=== PATIENT | female | born 1955 | race African-American/Black ===

== ENCOUNTER 2023-07-07 09:44 | Inpatient (IN) | payer OTHER ==
[~2023-07-07] VITALS: Ht 152.4 cm; Wt 90.7 kg
--- NOTE | 2023-07-07 11:07 | NUR ---
PTE FEMINA DE [facility] [place], SIN SIGNOS VITALES, SE MARK A UNIDAD DE CRITICO, [place]IJ[place] REFIERE PTE ESTABA DESAYUNANDO Y COMENZO A SENTIRSE AHOGADA SE PUSO MEDICAMENTO DE ALBUTEROL EN FORMA DE TINO Y LA PTE COMENZO A TENER DIFICULTAD RESPIRATORIA. 0947 SE COMIENZA CPR 0949 SE CANALIZA A PTE EN MANO DERECHA ANGIO #20 [address] [place] Y ERITEMA. 0950 PTE ES ENTUBADA CON EXITO POR CON TUBO #7. [address] LA PRIMERA FATIMAH DE EPINEFRINA, JEAN CLAUDE ORDEN MEDICA DE . [address] LA SEGUNDA FATIMAH DE EPINEFRINA, JEAN CLAUDE ORDEN MEDICA DE . [address] BICARBONATO DE SODIO, JEAN CLAUDE ORDEN MEDICA DE . [id number] [id number] TERCERA FATIMAH DE EPINEFRINA, JEAN CLAUDE ORDEN MEDICA DE . 1001 P-93 LAT/MIN 1003 B/P- 84/47 1004 INDICA ADMINISTRAR ATROPINA, LA MISMA ES ADMINISTRADA.
[2023-07-07 13:15] LABS: ABG PH 7.309 (7.35-7.45); ABG PO2 115.5 mmHg (80-100); ABG pCO2 47.4 mmHg (35-45); BASE EXCESS -3.3 mmol/l; BICARBONATE 23.3 mmol/l (23-25); SaO2 97.9 %; Tco2 24.7 mmol/l; o2 100 %; puncture site RADIAL LEFT
[2023-07-07 13:16] LABS: allen test SATISFACTORY
[2023-07-07 13:26] LABS: HEMATOCRIT 35.7 % (36.0-45.00); HEMOGLOBIN 12.1 g/dL (12.0-15.00); MEAN CELL VOLUME 89.4 fL (80.00-100.00); MEAN CORPUSCULAR HEMOGLOBIN 30.4 pg (27.00-32.0); RED BLOOD COUNT 3.99 M/uL (4.00-6.00); RED CELL DISTRIBUTION WIDTH 14.5 % (11.5-14.5)
[2023-07-07] MEDS ORDERED: FAMOTIDINE/PF 20 MG/2 ML VIAL IV PUSH ONE (13:30)
[2023-07-07] MEDS ORDERED: DEXAMETHASONE SODIUM PHOSPHATE 4 MG/ML VIAL IV ONE (13:30)
[2023-07-07 13:55] LABS: PLATELET COUNT 108 K/uL (150-450)
[2023-07-07 13:58] LABS: ALBUMIN 3.3 gm/dL (3.4-5.0); BILIRUBIN TOTAL 0.62 mg/dL (0.3-1.2); CALCIUM 8.5 mg/dL (8.5-10.1); CREATININE SERUM 1.2 mg/dL (0.55-1.02); GFR 44.41; GLOBULINA 3.5 G/DL (2.4-3.5); POTASSIUM 4.21 mEq/L (3.5-5.1); TOTAL PROTEIN 6.8 gm/dL (6.4-8.2)
[2023-07-07 15:25] LABS: PH,URINE 6.5 (5.0-8.0); URINE APPEARANCE Clear; URINE BILIRRUBIN Negative (NEGATIVE); URINE COLOR Yellow; URINE LEUKOCYTE Negative; URINE NITRATE Negative
[2023-07-07 15:28] LABS: URINE BACTERIA 658.8 uL (0.0-1933); URINE EPITHELIAL CELLS 20.4 uL (0.0-38.8); URINE RBC 14.2 uL (0.0-20.8)
[2023-07-07] MEDS ORDERED: NOREPINEPHRINE BITARTRATE 8 MG in DEXTROSE 5 % IN WATER 250 ML IV SCH (15:30)
[2023-07-07] MEDS ORDERED: EPINEPHRINE HCL/PF 1 MG/ML AMPUL IV PUSH STA (15:30)
[2023-07-07] MEDS ORDERED: SODIUM BICARBONATE 1 MEQ/ML DISP.SYRIN 50ML IV STA (15:31)
[2023-07-07] MEDS ORDERED: 0.9 % SODIUM CHLORIDE 1,000 ML IV STA (15:35)
[2023-07-07 15:42] LABS: URINE GLUCOSE 250 MG/DL (NEGATIVE); URINE PROTEIN 100 (NEGATIVE)
[2023-07-07 15:43] LABS: URINE BLOOD Trace; URINE MUCUS SCANT
[2023-07-07 15:45] LABS: URINE CRYSTALS MODERATE /HPF
[2023-07-07] MEDS ORDERED: ENALAPRILAT DIHYDRATE 2.5 MG/2 ML VIAL IV STA (15:53)
--- NOTE | 2023-07-07 15:58 | NUR ---
SE RECIBE PTE STUPUROSA EN CAMA #3, PTE EN KHALIDA CON BARANDAS ELEVADAS CONECTADA A MONITOR CARDIACO CON OXIMETRIA CONTINUA. PTE CON TUBO ENDOTRAQUEAL COLOCADO Y CONECTADO A MVENTILADOR MACANICO CON LOS SIGUIENTES PARAMETROS: VT 400, O2 100%, PEEP 6, PF LT 55, RATE 18. PTE CON TUBO NGT COLOCADO EN FOSSA LT. SE OBSERVAN H/L X2 COLOCADOS LIBRES DE EDEMA, 0.9NSS BAJANDO A 100ML/HR. PTE CON MARCELO COLOCADO BAJANDO A GRAVEDAD. SE MIDEN S/V A PTE Y SE DOCUMENTAN. SE NOTIFICA RX Y CT PENDIENTES A REALIZAR. PTE CON DNR+DNI+NO DIALYSIS FIRMADO POR FAMILIAR. PTE SE CONTINUA MONITORIANDO POR CAMBIOS.
[2023-07-07] MEDS ORDERED: PROPOFOL 100 ML IV SCH (16:45)
[2023-07-07] MEDS ORDERED: PANTOPRAZOLE SODIUM 40 MG/VIAL VIAL IV SCH (16:52)
[2023-07-07] MEDS ORDERED: FUROsemide 20 MG/2 ML VIAL IV ONE (17:00)
[2023-07-07] MEDS ORDERED: FUROsemide 20 MG/2 ML VIAL IV SCH (17:00)
[2023-07-07] MEDS ORDERED: NITROGLYCERIN IN 5 % DEXTROSE 250 ML IV SCH (17:00)
[2023-07-07] MEDS ORDERED: ONDANSETRON HCL 4 MG in 0.9 % SODIUM CHLORIDE 50 ML IV PRN (17:00)
[2023-07-07] MEDS ORDERED: MEROPENEM 500 MG/VIAL VIAL IV SCH (17:25)
[2023-07-07] MEDS ORDERED: VANCOMYCIN HCL 1,000 MG VIAL IV SCH (17:26)
[2023-07-07] MEDS ORDERED: ACETAMINOPHEN 500 MG GEL..CAP PO PRN (17:30)
[2023-07-07] MEDS ORDERED: ENOXAPARIN SODIUM 40 MG/0.4 ML SYRINGE SUBCUTANEO SCH (17:31)
[2023-07-07] MEDS ORDERED: 0.9 % SODIUM CHLORIDE 1,000 ML IV SCH (17:45)
[2023-07-07 18:25] LABS: ABG PO2 50.5 mmHg (80-100); ABG pCO2 38.5 mmHg (35-45); BASE EXCESS -2.4 mmol/l; BICARBONATE 22.3 mmol/l (23-25); SaO2 84.4 %; Tco2 23.5 mmol/l; allen test SATISFACTORY; o2 100 %; puncture site RADIAL LEFT
[2023-07-07 19:37] LABS: ALBUMIN 3.1 gm/dL (3.4-5.0); BILIRUBIN TOTAL 0.68 mg/dL (0.3-1.2); TOTAL PROTEIN 7.1 gm/dL (6.4-8.2)
[2023-07-07 19:38] LABS: INR 1.04; PARTIAL THROMBOPLASTIN TIME 24.8 SECONDS (22.0-34.0); PROTHROMBIN TIME 10.9 SECONDS (9.0-11.5)
[2023-07-07 19:39] LABS: D DIMER 6.08 MG/L
[2023-07-07 19:40] LABS: C-REACTIVE PROTEIN 5.13 MG/DL (0.00-0.29)
[2023-07-07 19:41] LABS: FERRITIN 1642.7 NG/ML (8-252)
[2023-07-07 19:50] LABS: BILIRUBIN,CONJUGATED 0.21 mg/dL (0.0-0.2); BILIRUBIN,UNCONJUGATED 0.47 mg/dL (0.0-0.6)
[2023-07-08 08:36] LABS: ABG PO2 325.4 mmHg (80-100); ABG pCO2 31.7 mmHg (35-45); BASE EXCESS 0.5 mmol/l; BICARBONATE 23.1 mmol/l (23-25); SaO2 99.9 %; Tco2 24.1 mmol/l
[2023-07-08 08:37] LABS: allen test SATISFACTORY; o2 100 %; puncture site RADIAL RIGHT
[2023-07-08] MEDS ORDERED: DEXAMETHASONE SODIUM PHOSPHATE 4 MG/ML VIAL IV SCH (09:00)
[2023-07-08] MEDS ORDERED: POLYVINYL ALCOHOL 15 ML DROPS OP SCH (14:39)
[2023-07-08 15:16] LABS: HEMATOCRIT 33.9 % (36.0-45.00); HEMOGLOBIN 11.6 g/dL (12.0-15.00); MEAN CELL VOLUME 89.1 fL (80.00-100.00); MEAN CORPUSCULAR HEMOGLOBIN 30.4 pg (27.00-32.0); MEAN CORPUSCULAR HGB CONC 34.1 g/dl (32.0-36.0); RED BLOOD COUNT 3.81 M/uL (4.00-6.00); RED CELL DISTRIBUTION WIDTH 14.8 % (11.5-14.5)
[2023-07-08 15:26] LABS: PLATELET COUNT 94 K/uL (150-450)
[2023-07-08] MEDS ORDERED: PROPOFOL 100 ML IV SCH (15:30)
[2023-07-08 15:38] LABS: ALBUMIN 2.5 gm/dL (3.4-5.0); BILIRUBIN TOTAL 0.63 mg/dL (0.3-1.2); CALCIUM 8.3 mg/dL (8.5-10.1); CREATININE SERUM 1.35 mg/dL (0.55-1.02); GFR 38.77; GLOBULINA 3.8 G/DL (2.4-3.5); MAGNESIUM 1.9 mg/dL (1.8-2.4); PHOSPHOROUS 3.3 mg/dL (2.5-4.9); POTASSIUM 3.72 mEq/L (3.5-5.1); TOTAL PROTEIN 6.3 gm/dL (6.4-8.2)
[2023-07-08] MEDS ORDERED: AMIODARONE HCL200 MG (15:41)
[2023-07-08] MEDS ORDERED: FARXIGA10 MG (15:41)
[2023-07-08] MEDS ORDERED: ADVAIR HFA 115/12 GM (15:41)
[2023-07-08] MEDS ORDERED: ELIQUIS2.5 MG (15:41)
[2023-07-08] MEDS ORDERED: DIGOXIN125 MCG (15:42)
[2023-07-08] MEDS ORDERED: FLONASE16 GM (15:42)
[2023-07-08] MEDS ORDERED: LORATADINE10 MG (15:42)
[2023-07-08] MEDS ORDERED: GABAPENTIN300 M2 (15:42)
[2023-07-08] MEDS ORDERED: LISINOPRIL10 MG (15:42)
[2023-07-08] MEDS ORDERED: METHOTREXATE2.5 MG (15:42)
[2023-07-08] MEDS ORDERED: CARVEDILOL25 M1 (15:42)
[2023-07-08] MEDS ORDERED: ALLOPURINOL100 MG (15:42)
[2023-07-08] MEDS ORDERED: FUROSEMIDE20 MG (15:42)
[2023-07-08] MEDS ORDERED: CHLORHEXIDINE GLUCONATE 15ML BRUSH KIT MM SCH (17:00)
[2023-07-09 04:00] LABS: HEMATOCRIT 32.7 % (36.0-45.00); HEMOGLOBIN 11.2 g/dL (12.0-15.00); MEAN CELL VOLUME 88.3 fL (80.00-100.00); MEAN CORPUSCULAR HEMOGLOBIN 30.3 pg (27.00-32.0); MEAN CORPUSCULAR HGB CONC 34.3 g/dl (32.0-36.0); RED CELL DISTRIBUTION WIDTH 14.7 % (11.5-14.5)
[2023-07-09 04:03] LABS: PLATELET COUNT 101 K/uL (150-450)
[2023-07-09 04:45] LABS: FERRITIN 685.3 NG/ML (8-252)
[2023-07-09 04:46] LABS: ALBUMIN 2.5 gm/dL (3.4-5.0); BILIRUBIN TOTAL 0.67 mg/dL (0.3-1.2); CALCIUM 8.5 mg/dL (8.5-10.1); CREATININE SERUM 1.16 mg/dL (0.55-1.02); GFR 46.18; MAGNESIUM 1.9 mg/dL (1.8-2.4); PHOSPHOROUS 2.6 mg/dL (2.5-4.9); POTASSIUM 3.6 mEq/L (3.5-5.1); TOTAL PROTEIN 6.5 gm/dL (6.4-8.2)
[2023-07-09 04:47] LABS: C-REACTIVE PROTEIN 31.8 MG/DL (0.00-0.29)
[2023-07-09] MEDS ORDERED: CEFTRIAXONE SODIUM 2,000 MG VIAL IV SCH (12:20)
[2023-07-09 14:53] LABS: ABG PH 7.486 (7.35-7.45); ABG PO2 80.9 mmHg (80-100); ABG pCO2 35.2 mmHg (35-45); BASE EXCESS 2.9 mmol/l; BICARBONATE 25.9 mmol/l (23-25); SaO2 96.9 %
[2023-07-09 14:54] LABS: allen test SATISFACTORY; o2 40 %; puncture site RADIAL RIGHT
[2023-07-09] MEDS ORDERED: NITROGLYCERIN IN 5 % DEXTROSE 50 MG/250 ML BOTTLE IV SCH (23:00)
[2023-07-10] MEDS ORDERED: NITROGLYCERIN IN 5 % DEXTROSE 250 ML IV SCH (08:45)
[2023-07-10] MEDS ORDERED: LISINOPRIL 10 MG TABLET PO SCH (09:00)
[2023-07-10] MEDS ORDERED: ALLOPURINOL 100 MG TABLET PO SCH (09:00)
[2023-07-10] MEDS ORDERED: GABAPENTIN 300 MG CAPSULE PO SCH (09:00)
[2023-07-10] MEDS ORDERED: CHLORHEXIDINE GLUCONATE 120 ML BOTTLE TOP ONE (10:06)
[2023-07-10 10:30] LABS: ABG PH 7.503 (7.35-7.45); ABG PO2 106.7 mmHg (80-100); ABG pCO2 37.5 mmHg (35-45); BASE EXCESS 5.5 mmol/l; BICARBONATE 28.7 mmol/l (23-25); Tco2 29.9 mmol/l
[2023-07-10 10:31] LABS: allen test SATISFACTORY; o2 40 %; puncture site RADIAL LEFT
[2023-07-10 10:32] LABS: SaO2 98.7 %
[2023-07-10] MEDS ORDERED: hydrALAZINE HCL 25 MG TABLET PO STA (14:34)
[2023-07-10] MEDS ORDERED: DILTIAZEM HCL 125MG/25ML VIAL IV ONE (18:11)
[2023-07-10] MEDS ORDERED: DILTIAZEM HCL IV SCH (18:15)
[2023-07-10] MEDS ORDERED: SODIUM CHLORIDE 0.9% IV SCH (18:15)
[2023-07-10] MEDS ORDERED: hydrALAZINE HCL 25 MG TABLET PO SCH (21:00)
[2023-07-11 05:57] LABS: ABG PH 7.477 (7.35-7.45)
[2023-07-11 05:58] LABS: ABG PO2 96.7 mmHg (80-100); ABG pCO2 37.8 mmHg (35-45); BASE EXCESS 3.8 mmol/l; BICARBONATE 27.4 mmol/l (23-25); SaO2 98.1 %; Tco2 28.5 mmol/l; allen test SATISFACTORY; o2 40 %; puncture site RADIAL RIGHT
[2023-07-11] MEDS ORDERED: MEROPENEM 500 MG/VIAL VIAL IV SCH (09:00)
[2023-07-11 09:06] LABS: FERRITIN 969.9 NG/ML (8-252)
[2023-07-11] MEDS ORDERED: DILTIAZEM HCL 125 MG in 0.9 % SODIUM CHLORIDE 100 ML IV SCH (09:30)
[2023-07-11] MEDS ORDERED: LevETIRAcetam 500 MG/5 ML VIAL IV STA (21:59)
[2023-07-11] MEDS ORDERED: LORazepam 2 MG/ML VIAL IV PUSH STA (22:00)
[2023-07-12] MEDS ORDERED: LevETIRAcetam 500 MG/5 ML VIAL IV SCH (09:00)
[2023-07-12 09:04] LABS: ABG PH 7.491 (7.35-7.45)
[2023-07-12 09:05] LABS: ABG PO2 84.6 mmHg (80-100); ABG pCO2 37.7 mmHg (35-45); BASE EXCESS 4.7 mmol/l; BICARBONATE 28.1 mmol/l (23-25); SaO2 97.3 %; Tco2 29.3 mmol/l
[2023-07-12 09:06] LABS: allen test SATISFACTORY; o2 21 %; puncture site RADIAL RIGHT
[2023-07-12] MEDS ORDERED: VANCOMYCIN HCL 1,000 MG VIAL IV SCH (21:00)
[2023-07-12] MEDS ORDERED: CIPROFLOXACIN IN 5 % DEXTROSE 400 MG/200 ML PIGGYBAG IV SCH (21:00)
[2023-07-13 06:14] LABS: HEMATOCRIT 32.8 % (36.0-45.00); HEMOGLOBIN 11.1 g/dL (12.0-15.00); MEAN CELL VOLUME 90.2 fL (80.00-100.00); MEAN CORPUSCULAR HEMOGLOBIN 30.4 pg (27.00-32.0); MEAN CORPUSCULAR HGB CONC 33.7 g/dl (32.0-36.0); RED BLOOD COUNT 3.63 M/uL (4.00-6.00); RED CELL DISTRIBUTION WIDTH 14.9 % (11.5-14.5)
[2023-07-13 07:09] LABS: ALBUMIN 2.5 gm/dL (3.4-5.0); BILIRUBIN TOTAL 0.6 mg/dL (0.3-1.2); CALCIUM 8.8 mg/dL (8.5-10.1); CREATININE SERUM 0.87 mg/dL (0.55-1.02); GFR 64.37; GLOBULINA 4.1 G/DL (2.4-3.5); MAGNESIUM 2.4 mg/dL (1.8-2.4); PHOSPHOROUS 3.6 mg/dL (2.5-4.9); POTASSIUM 3.48 mEq/L (3.5-5.1); TOTAL PROTEIN 6.6 gm/dL (6.4-8.2)
[2023-07-13 07:13] LABS: C-REACTIVE PROTEIN 8.68 MG/DL (0.00-0.29)
[2023-07-13 07:34] LABS: FERRITIN 755.6 NG/ML (8-252)
[2023-07-13 08:48] LABS: PLATELET COUNT 164 K/uL (150-450)
[2023-07-13 08:56] LABS: ABG PH 7.509 (7.35-7.45); ABG PO2 94.1 mmHg (80-100); ABG pCO2 37.9 mmHg (35-45); BASE EXCESS 6.2 mmol/l; BICARBONATE 29.5 mmol/l (23-25); SaO2 98.2 %; Tco2 30.7 mmol/l; allen test SATISFACTORY; o2 45 %; puncture site RADIAL RIGHT
[2023-07-13] MEDS ORDERED: hydrALAZINE HCL 50 MG TABLET PO SCH (13:00)
[2023-07-13] MEDS ORDERED: POTASSIUM BICARBONATE/CIT AC 25 MEQ TABLET.EFF PO SCH (14:00)
[2023-07-14 07:59] LABS: ABG PH 7.501 (7.35-7.45); ABG PO2 107.5 mmHg (80-100); ABG pCO2 40.6 mmHg (35-45); BASE EXCESS 7.3 mmol/l; BICARBONATE 31.1 mmol/l (23-25); SaO2 98.7 %
[2023-07-14 08:00] LABS: Tco2 32.3 mmol/l; allen test SATISFACTORY; o2 40 %; puncture site RADIAL RIGHT
[2023-07-14] MEDS ORDERED: LORazepam 2 MG/ML VIAL IV PUSH PRN (14:45)
[2023-07-14] MEDS ORDERED: LevETIRAcetam 5 MG/1 ML REDILUIDO IV SCH (17:00)
[2023-07-14] MEDS ORDERED: MORPHINE SULFATE 4 MG/ML VIAL IV SCH (17:30)
[2023-07-14] MEDS ORDERED: MORPHINE SULFATE 50 MG in 0.9 % SODIUM CHLORIDE 50 ML IV SCH (18:00)
[2023-07-15] MEDS ORDERED: LEVALBUTEROL HCL 0.63 MG/3 ML SOLUTION IH SCH ×2 (08:08→08:10)
[2023-07-16] MEDS ORDERED: POTASSIUM CHLORIDE 20MEQ/100ML H2O PB IV ONE (10:30)
[2023-07-16] MEDS ORDERED: CHLORHEXIDINE GLUCONATE 15ML BRUSH KIT MM SCH (21:28)
[2023-07-16] MEDS ORDERED: POLYVINYL ALCOHOL 15 ML DROPS OP SCH (21:29)
[2023-07-19 12:18] LABS: HEMATOCRIT 32.4 % (36.0-45.00); HEMOGLOBIN 10.3 g/dL (12.0-15.00); MEAN CELL VOLUME 91.9 fL (80.00-100.00); MEAN CORPUSCULAR HEMOGLOBIN 29.2 pg (27.00-32.0); MEAN CORPUSCULAR HGB CONC 31.8 g/dl (32.0-36.0); PLATELET COUNT 416 K/uL (150-450); RED BLOOD COUNT 3.53 M/uL (4.00-6.00); RED CELL DISTRIBUTION WIDTH 15.4 % (11.5-14.5)
[2023-07-19 12:22] LABS: ALBUMIN 2.1 gm/dL (3.4-5.0); BILIRUBIN TOTAL 0.38 mg/dL (0.3-1.2); CALCIUM 9.3 mg/dL (8.5-10.1); CREATININE SERUM 1.56 mg/dL (0.55-1.02); GFR 32.81; GLOBULINA 5.1 G/DL (2.4-3.5); POTASSIUM 4.14 mEq/L (3.5-5.1); TOTAL PROTEIN 7.2 gm/dL (6.4-8.2)
[2023-07-20 07:30] LABS: ABG PH 7.438 (7.35-7.45); ABG PO2 67.1 mmHg (80-100); ABG pCO2 46.8 mmHg (35-45); BASE EXCESS 5.7 mmol/l; BICARBONATE 30.9 mmol/l (23-25); SaO2 94.1 %; Tco2 32.4 mmol/l; allen test SATISFACTORY; o2 21 %; puncture site RADIAL RIGHT
[2023-07-20] MEDS ORDERED: DEXTROSE 5 % IN WATER 1,000 ML IV SCH (12:45)
[2023-07-20] MEDS ORDERED: ACETAMINOPHEN 325 MG SUPP.RECT RECTAL PRN (16:15)
[2023-07-20] MEDS ORDERED: CIPROFLOXACIN IN 5 % DEXTROSE 400 MG/200 ML PIGGYBAG IV SCH (21:00)
[2023-07-21 05:19] LABS: ABG PH 7.475 (7.35-7.45)
[2023-07-21 05:20] LABS: ABG PO2 59.5 mmHg (80-100); ABG pCO2 39.2 mmHg (35-45); BASE EXCESS 4.4 mmol/l; BICARBONATE 28.2 mmol/l (23-25); SaO2 92.6 %; Tco2 29.4 mmol/l
[2023-07-21 05:21] LABS: allen test SATISFACTORY; o2 36 %; puncture site RADIAL RIGHT
[2023-07-21] MEDS ORDERED: MEROPENEM 500 MG/VIAL VIAL IV SCH (13:00)
[2023-07-21] MEDS ORDERED: VANCOMYCIN HCL 5 MG/ML REDILUIDO IV SCH (18:00)
[2023-07-22 08:17] LABS: HEMATOCRIT 32.9 % (36.0-45.00); HEMOGLOBIN 10.5 g/dL (12.0-15.00); MEAN CELL VOLUME 93.2 fL (80.00-100.00); MEAN CORPUSCULAR HEMOGLOBIN 29.8 pg (27.00-32.0); PLATELET COUNT 316 K/uL (150-450); RED BLOOD COUNT 3.53 M/uL (4.00-6.00); RED CELL DISTRIBUTION WIDTH 15.3 % (11.5-14.5)
[2023-07-22 08:22] LABS: CALCIUM 9.1 mg/dL (8.5-10.1); POTASSIUM 4.28 mEq/L (3.5-5.1)
[2023-07-22 09:20] LABS: CREATININE SERUM 5.75 mg/dL (0.55-1.02)
[2023-07-22 09:21] LABS: GFR 7.28
[2023-07-22] MEDS ORDERED: SODIUM CHLORIDE 0.45 % 1,000 ML IV SCH (09:30)
[2023-07-23 10:59] LABS: BILIRUBIN TOTAL 0.38 mg/dL (0.3-1.2); CALCIUM 9.2 mg/dL (8.5-10.1); GLOBULINA 4.8 G/DL (2.4-3.5); POTASSIUM 4.24 mEq/L (3.5-5.1); TOTAL PROTEIN 6.8 gm/dL (6.4-8.2)
[2023-07-23 11:55] LABS: GFR 10.07
[2023-07-23 11:56] LABS: CREATININE SERUM 4.34 mg/dL (0.55-1.02)
[2023-07-24 08:24] LABS: BILIRUBIN TOTAL 0.33 mg/dL (0.3-1.2); CALCIUM 9.1 mg/dL (8.5-10.1); CREATININE SERUM 2.81 mg/dL (0.55-1.02); GFR 16.64; GLOBULINA 4.5 G/DL (2.4-3.5); POTASSIUM 4.6 mEq/L (3.5-5.1); TOTAL PROTEIN 6.5 gm/dL (6.4-8.2)
[2023-07-24] MEDS ORDERED: DEXTROSE 5 % IN WATER 1,000 ML IV SCH (10:15)
[2023-07-24] MEDS ORDERED: SODIUM CHLORIDE 0.45 % 1,000 ML IV SCH (11:00)
[2023-07-24] MEDS ORDERED: DESMOPRESSIN ACETATE 4 MCG/ML AMPUL IV SCH (12:00)
[2023-07-25 00:10] LABS: ALBUMIN 1.8 gm/dL (3.4-5.0); BILIRUBIN TOTAL 0.31 mg/dL (0.3-1.2); CALCIUM 8.7 mg/dL (8.5-10.1); CREATININE SERUM 1.9 mg/dL (0.55-1.02); GFR 26.13; GLOBULINA 4.4 G/DL (2.4-3.5); POTASSIUM 4.6 mEq/L (3.5-5.1); TOTAL PROTEIN 6.2 gm/dL (6.4-8.2)
[2023-07-25 08:32] LABS: ALBUMIN 1.8 gm/dL (3.4-5.0); BILIRUBIN TOTAL 0.32 mg/dL (0.3-1.2); CALCIUM 8.7 mg/dL (8.5-10.1); CREATININE SERUM 1.65 mg/dL (0.55-1.02); GFR 30.75; GLOBULINA 4.5 G/DL (2.4-3.5); POTASSIUM 4.55 mEq/L (3.5-5.1); TOTAL PROTEIN 6.3 gm/dL (6.4-8.2); URIC ACID 7.5 mg/dL (2.5-7.5)
[2023-07-25 16:10] LABS: CALCIUM 7.8 mg/dL (8.5-10.1); CREATININE SERUM 1.36 mg/dL (0.55-1.02); GFR 38.44; POTASSIUM 3.84 mEq/L (3.5-5.1)
[2023-07-25] MEDS ORDERED: DESMOPRESSIN ACETATE 4 MCG/ML AMPUL IV SCH (21:00)
[2023-07-25 21:16] LABS: ALBUMIN 1.7 gm/dL (3.4-5.0); BILIRUBIN TOTAL 0.31 mg/dL (0.3-1.2); CALCIUM 8.4 mg/dL (8.5-10.1); CREATININE SERUM 1.23 mg/dL (0.55-1.02); GFR 43.16; GLOBULINA 4.3 G/DL (2.4-3.5); POTASSIUM 4.31 mEq/L (3.5-5.1)
[2023-07-26 06:46] LABS: ALBUMIN 1.7 gm/dL (3.4-5.0); BILIRUBIN TOTAL 0.34 mg/dL (0.3-1.2); CALCIUM 8.5 mg/dL (8.5-10.1); CREATININE SERUM 1.13 mg/dL (0.55-1.02); GFR 47.6; GLOBULINA 4.3 G/DL (2.4-3.5); POTASSIUM 4.36 mEq/L (3.5-5.1)
[2023-07-26 14:28] LABS: ABG PH 7.421 (7.35-7.45); ABG pCO2 36.8 mmHg (35-45)
[2023-07-26 14:49] LABS: ABG PO2 50.3 mmHg (80-100); BASE EXCESS -0.6 mmol/l; BICARBONATE 23.4 mmol/l (23-25); Tco2 24.5 mmol/l; allen test SATISFACTORY; o2 36 %; puncture site RADIAL RIGHT
[2023-07-27 06:39] LABS: HEMOGLOBIN 9.3 g/dL (12.0-15.00); MEAN CELL VOLUME 91.3 fL (80.00-100.00); MEAN CORPUSCULAR HEMOGLOBIN 29.1 pg (27.00-32.0); MEAN CORPUSCULAR HGB CONC 31.9 g/dl (32.0-36.0); RED BLOOD COUNT 3.18 M/uL (4.00-6.00); RED CELL DISTRIBUTION WIDTH 14.4 % (11.5-14.5)
[2023-07-27 06:40] LABS: PLATELET COUNT 128 K/uL (150-450)
[2023-07-27 07:12] LABS: ALBUMIN 1.6 gm/dL (3.4-5.0); BILIRUBIN TOTAL 0.4 mg/dL (0.3-1.2); CALCIUM 7.9 mg/dL (8.5-10.1); CREATININE SERUM 0.95 mg/dL (0.55-1.02); GFR 58.15; GLOBULINA 4.2 G/DL (2.4-3.5); MAGNESIUM 2.1 mg/dL (1.8-2.4); PHOSPHOROUS 2.1 mg/dL (2.5-4.9); POTASSIUM 4.19 mEq/L (3.5-5.1); TOTAL PROTEIN 5.8 gm/dL (6.4-8.2)
[2023-07-27] MEDS ORDERED: DEXTROSE 5 % IN WATER 1,000 ML IV SCH (10:15)
[2023-07-27 11:04] LABS: ABG PH 7.441 (7.35-7.45); ABG PO2 64.9 mmHg (80-100); ABG pCO2 34.2 mmHg (35-45); BASE EXCESS -0.7 mmol/l; BICARBONATE 22.8 mmol/l (23-25); SaO2 93.2 %
[2023-07-27 11:05] LABS: Tco2 23.8 mmol/l; allen test SATISFACTORY; o2 35 %; puncture site RADIAL RIGHT
[2023-07-28 13:05] LABS: CALCIUM 8.2 mg/dL (8.5-10.1); CREATININE SERUM 0.76 mg/dL (0.55-1.02); GFR 75.23; POTASSIUM 4.27 mEq/L (3.5-5.1)
[2023-07-28 15:28] LABS: ALBUMIN 1.7 gm/dL (3.4-5.0); BILIRUBIN TOTAL 0.37 mg/dL (0.3-1.2); CALCIUM 8.3 mg/dL (8.5-10.1); CREATININE SERUM 0.75 mg/dL (0.55-1.02); GFR 76.39; GLOBULINA 4.3 G/DL (2.4-3.5); POTASSIUM 4.29 mEq/L (3.5-5.1)
[2023-07-28] MEDS ORDERED: DESMOPRESSIN ACETATE 4 MCG/ML AMPUL IV SCH (17:00)
[2023-07-29 06:13] LABS: HEMATOCRIT 26.4 % (36.0-45.00); HEMOGLOBIN 9.2 g/dL (12.0-15.00); MEAN CELL VOLUME 89.6 fL (80.00-100.00); MEAN CORPUSCULAR HEMOGLOBIN 31.2 pg (27.00-32.0); MEAN CORPUSCULAR HGB CONC 34.9 g/dl (32.0-36.0); PLATELET COUNT 183 K/uL (150-450); RED BLOOD COUNT 2.95 M/uL (4.00-6.00); RED CELL DISTRIBUTION WIDTH 14.4 % (11.5-14.5)
[2023-07-29 06:59] LABS: ALBUMIN 1.7 gm/dL (3.4-5.0); BILIRUBIN TOTAL 0.36 mg/dL (0.3-1.2); CALCIUM 8.1 mg/dL (8.5-10.1); CREATININE SERUM 0.68 mg/dL (0.55-1.02); GFR 85.54; GLOBULINA 4.3 G/DL (2.4-3.5); POTASSIUM 4.31 mEq/L (3.5-5.1)
[2023-07-29] MEDS ORDERED: levoFLOXacin IN DEXTROSE 5 % 150 ML IV SCH (17:00)
[2023-07-30 10:13] LABS: ABG PO2 91.8 mmHg (80-100); ABG pCO2 30.8 mmHg (35-45); BASE EXCESS -1.3 mmol/l; BICARBONATE 21.4 mmol/l (23-25); SaO2 97.5 %; Tco2 22.4 mmol/l
[2023-07-30 10:14] LABS: allen test SATISFACTORY; o2 32 %; puncture site RADIAL LEFT
[2023-08-03 00:30] LABS: ALBUMIN 1.6 gm/dL (3.4-5.0); BILIRUBIN TOTAL 0.33 mg/dL (0.3-1.2); CALCIUM 7.7 mg/dL (8.5-10.1); CREATININE SERUM 0.47 mg/dL (0.55-1.02); GLOBULINA 4.2 G/DL (2.4-3.5); POTASSIUM 5.13 mEq/L (3.5-5.1); TOTAL PROTEIN 5.8 gm/dL (6.4-8.2)
[2023-08-03] MEDS ORDERED: SODIUM CHLORIDE 0.45 % 1,000 ML IV SCH (07:30)
[2023-08-03] MEDS ORDERED: 0.9 % SODIUM CHLORIDE 1,000 ML IV SCH (08:15)
[2023-08-03] MEDS ORDERED: DESMOPRESSIN ACETATE 4 MCG/ML AMPUL IV SCH (09:00)
[2023-08-04 06:55] LABS: ALBUMIN 1.8 gm/dL (3.4-5.0); CALCIUM 7.8 mg/dL (8.5-10.1); GFR 228.7; MAGNESIUM 1.5 mg/dL (1.8-2.4); PHOSPHOROUS 2.3 mg/dL (2.5-4.9); POTASSIUM 4.52 mEq/L (3.5-5.1)
[2023-08-04 07:02] LABS: CREATININE SERUM 0.29 mg/dL (0.55-1.02)
[2023-08-04 15:37] LABS: HEMATOCRIT 29.3 % (36.0-45.00); HEMOGLOBIN 9.9 g/dL (12.0-15.00); MEAN CELL VOLUME 88.5 fL (80.00-100.00); MEAN CORPUSCULAR HEMOGLOBIN 29.9 pg (27.00-32.0); MEAN CORPUSCULAR HGB CONC 33.8 g/dl (32.0-36.0); PLATELET COUNT 332 K/uL (150-450); RED BLOOD COUNT 3.31 M/uL (4.00-6.00); RED CELL DISTRIBUTION WIDTH 15.2 % (11.5-14.5)
[2023-08-04 16:19] LABS: ALBUMIN 1.9 gm/dL (3.4-5.0); BILIRUBIN TOTAL 0.29 mg/dL (0.3-1.2); CALCIUM 8.5 mg/dL (8.5-10.1); CREATININE SERUM 0.34 mg/dL (0.55-1.02); GFR 190.35; GLOBULINA 4.2 G/DL (2.4-3.5); POTASSIUM 4.12 mEq/L (3.5-5.1); TOTAL PROTEIN 6.1 gm/dL (6.4-8.2)
[2023-08-05 05:58] LABS: ALBUMIN 1.8 gm/dL (3.4-5.0); CALCIUM 8.1 mg/dL (8.5-10.1); GFR 248.36; PHOSPHOROUS 2.5 mg/dL (2.5-4.9); POTASSIUM 4.17 mEq/L (3.5-5.1)
[2023-08-05 06:35] LABS: CREATININE SERUM 0.27 mg/dL (0.55-1.02)
[2023-08-05] MEDS ORDERED: MAGNESIUM SULFATE IN WATER 2 GM/50 ML PIGGYBAG IV ONE (07:30)
[2023-08-10 07:13] LABS: HEMATOCRIT 28.7 % (36.0-45.00); HEMOGLOBIN 9.4 g/dL (12.0-15.00); MEAN CELL VOLUME 90.4 fL (80.00-100.00); MEAN CORPUSCULAR HEMOGLOBIN 29.8 pg (27.00-32.0); MEAN CORPUSCULAR HGB CONC 32.9 g/dl (32.0-36.0); PLATELET COUNT 270 K/uL (150-450); RED BLOOD COUNT 3.17 M/uL (4.00-6.00)
[2023-08-10 07:36] LABS: URINE BACTERIA 763.5 uL (0.0-1933); URINE EPITHELIAL CELLS 60.9 uL (0.0-38.8); URINE RBC 104.2 uL (0.0-20.8); URINE WBC 91.5 uL (0.0-23.2)
[2023-08-10 07:49] LABS: PH,URINE 5.5; URINE BILIRRUBIN SMALL (NEGATIVE); URINE BLOOD SMALL; URINE GLUCOSE NEGATIVE (NEGATIVE); URINE LEUKOCYTE NEGATIVE; URINE NITRATE NEGATIVE; URINE PROTEIN TRACE (NEGATIVE); URINE UROBILINOGEN 0.2 E.U./dl
[2023-08-10 07:55] LABS: URINE APPEARANCE SL CLOUDY; URINE COLOR YELLOW
[2023-08-10 08:33] LABS: ALBUMIN 1.9 gm/dL (3.4-5.0); BILIRUBIN TOTAL 0.28 mg/dL (0.3-1.2); CALCIUM 8.6 mg/dL (8.5-10.1); CREATININE SERUM 0.3 mg/dL (0.55-1.02); GFR 219.93; GLOBULINA 3.9 G/DL (2.4-3.5); MAGNESIUM 1.7 mg/dL (1.8-2.4); PHOSPHOROUS 3.1 mg/dL (2.5-4.9); POTASSIUM 4.26 mEq/L (3.5-5.1); TOTAL PROTEIN 5.8 gm/dL (6.4-8.2)
[2023-08-11] MEDS ORDERED: SODIUM CHLORIDE 0.45 % 1,000 ML IV SCH (06:30)
[2023-08-16 22:12] LABS: HEMATOCRIT 29.8 % (36.0-45.00); MEAN CELL VOLUME 90.2 fL (80.00-100.00); MEAN CORPUSCULAR HEMOGLOBIN 30.1 pg (27.00-32.0); MEAN CORPUSCULAR HGB CONC 33.4 g/dl (32.0-36.0); PLATELET COUNT 222 K/uL (150-450); RED BLOOD COUNT 3.31 M/uL (4.00-6.00); RED CELL DISTRIBUTION WIDTH 15.3 % (11.5-14.5)
[2023-08-16 22:34] LABS: BILIRUBIN TOTAL 0.23 mg/dL (0.3-1.2); CALCIUM 8.4 mg/dL (8.5-10.1); CREATININE SERUM 0.26 mg/dL (0.55-1.02); GFR 259.42; GLOBULINA 3.8 G/DL (2.4-3.5); POTASSIUM 3.63 mEq/L (3.5-5.1); TOTAL PROTEIN 5.8 gm/dL (6.4-8.2)
[2023-08-18] MEDS ORDERED: MEROPENEM 500 MG/VIAL VIAL IV SCH (08:00)
[2023-08-18 22:44] LABS: PH,URINE 6.5 (5.0-8.0); URINE APPEARANCE Turbid; URINE BILIRRUBIN Negative (NEGATIVE); URINE BLOOD Moderate; URINE COLOR Yellow; URINE GLUCOSE Negative (NEGATIVE); URINE LEUKOCYTE Large; URINE NITRATE Positive; URINE PROTEIN Negative (NEGATIVE); URINE UROBILINOGEN 0.2 E.U./dl
[2023-08-18 22:48] LABS: URINE EPITHELIAL CELLS 3.8 uL (0.0-38.8); URINE RBC 7.3 uL (0.0-20.8); URINE WBC 2984.9 uL (0.0-23.2)
[2023-08-18 22:49] LABS: URINE BACTERIA > 9821.5 uL (0.0-1933)
[2023-08-20 06:18] LABS: HEMATOCRIT 27.2 % (36.0-45.00); HEMOGLOBIN 9.2 g/dL (12.0-15.00); MEAN CELL VOLUME 89.8 fL (80.00-100.00); MEAN CORPUSCULAR HEMOGLOBIN 30.3 pg (27.00-32.0); MEAN CORPUSCULAR HGB CONC 33.8 g/dl (32.0-36.0); PLATELET COUNT 230 K/uL (150-450); RED BLOOD COUNT 3.03 M/uL (4.00-6.00); RED CELL DISTRIBUTION WIDTH 14.6 % (11.5-14.5)
[2023-08-20 07:15] LABS: ALBUMIN 1.7 gm/dL (3.4-5.0); BILIRUBIN TOTAL 0.22 mg/dL (0.3-1.2); CALCIUM 8.3 mg/dL (8.5-10.1); GLOBULINA 3.7 G/DL (2.4-3.5); MAGNESIUM 1.8 mg/dL (1.8-2.4); POTASSIUM 3.58 mEq/L (3.5-5.1); TOTAL PROTEIN 5.4 gm/dL (6.4-8.2)
[2023-08-20 07:16] LABS: CREATININE SERUM 0.18 mg/dL (0.55-1.02); GFR 396.56
[2023-08-20] MEDS ORDERED: GENTAMICIN SULFATE 40 MG/ML VIAL IV ONE (19:45)
[2023-08-20] MEDS ORDERED: GENTAMICIN SULFATE 40 MG/ML VIAL IV SCH (21:00)
[2023-08-22 08:17] LABS: ALBUMIN 1.6 gm/dL (3.4-5.0); BILIRUBIN TOTAL 0.18 mg/dL (0.3-1.2); CALCIUM 8.6 mg/dL (8.5-10.1); GLOBULINA 3.9 G/DL (2.4-3.5); MAGNESIUM 1.8 mg/dL (1.8-2.4); PHOSPHOROUS 2.9 mg/dL (2.5-4.9); POTASSIUM 3.78 mEq/L (3.5-5.1); TOTAL PROTEIN 5.5 gm/dL (6.4-8.2)
[2023-08-22 08:26] LABS: C-REACTIVE PROTEIN 9.9 MG/DL (0.00-0.29); CREATININE SERUM 0.2 mg/dL (0.55-1.02); GFR 351.16
[2023-08-22 08:45] LABS: GENTAMYCIN PEAK 1.9 ug/ml (4.0-8.0)
[2023-08-22 08:48] LABS: HEMATOCRIT 25.7 % (36.0-45.00); MEAN CELL VOLUME 89.4 fL (80.00-100.00); MEAN CORPUSCULAR HGB CONC 32.6 g/dl (32.0-36.0); PLATELET COUNT 271 K/uL (150-450); RED BLOOD COUNT 2.88 M/uL (4.00-6.00)
[2023-08-22 08:50] LABS: MEAN CORPUSCULAR HEMOGLOBIN 29.1 pg (27.00-32.0)
[2023-08-22 08:51] LABS: HEMOGLOBIN 8.4 g/dL (12.0-15.00)
[2023-08-24 14:52] LABS: PH,URINE 5.5 (5.0-8.0); URINE APPEARANCE Cloudy; URINE BILIRRUBIN Negative (NEGATIVE); URINE BLOOD Negative; URINE COLOR Yellow; URINE GLUCOSE Negative (NEGATIVE); URINE LEUKOCYTE Trace; URINE NITRATE Negative; URINE PROTEIN 30 (NEGATIVE)
[2023-08-24 14:56] LABS: URINE BACTERIA 356.5 uL (0.0-1933); URINE RBC 31.7 uL (0.0-20.8); URINE WBC 15.7 uL (0.0-23.2)
[2023-08-24 15:30] LABS: URINE MUCUS SCANT
[2023-08-24] MEDS ORDERED: DOXYCYCLINE HYCLATE 100MG IV SCH (21:00)
[2023-08-25 07:06] LABS: HEMATOCRIT 26.1 % (36.0-45.00); MEAN CELL VOLUME 89.3 fL (80.00-100.00); MEAN CORPUSCULAR HGB CONC 33.4 g/dl (32.0-36.0); PLATELET COUNT 304 K/uL (150-450); RED BLOOD COUNT 2.93 M/uL (4.00-6.00); RED CELL DISTRIBUTION WIDTH 14.9 % (11.5-14.5)
[2023-08-25 07:07] LABS: MEAN CORPUSCULAR HEMOGLOBIN 29.6 pg (27.00-32.0)
[2023-08-25 07:08] LABS: HEMOGLOBIN 8.7 g/dL (12.0-15.00)
[2023-08-25 07:10] LABS: ALBUMIN 1.7 gm/dL (3.4-5.0); BILIRUBIN TOTAL 0.24 mg/dL (0.3-1.2); CALCIUM 8.5 mg/dL (8.5-10.1); GLOBULINA 3.6 G/DL (2.4-3.5); MAGNESIUM 1.7 mg/dL (1.8-2.4); POTASSIUM 3.77 mEq/L (3.5-5.1); TOTAL PROTEIN 5.3 gm/dL (6.4-8.2)
[2023-08-25 07:12] LABS: C-REACTIVE PROTEIN 8.73 MG/DL (0.00-0.29); CREATININE SERUM 0.18 mg/dL (0.55-1.02); GFR 396.56
[2023-08-25] MEDS ORDERED: LOSARTAN POTASSIUM 50 MG TABLET PO SCH (09:00)
[2023-08-28 15:26] LABS: MEAN CELL VOLUME 89.3 fL (80.00-100.00); MEAN CORPUSCULAR HGB CONC 31.8 g/dl (32.0-36.0); PLATELET COUNT 285 K/uL (150-450); RED BLOOD COUNT 2.43 M/uL (4.00-6.00); RED CELL DISTRIBUTION WIDTH 14.9 % (11.5-14.5)
[2023-08-28 15:30] LABS: HEMATOCRIT 21.7 % (36.0-45.00); HEMOGLOBIN 6.9 g/dL (12.0-15.00); MEAN CORPUSCULAR HEMOGLOBIN 28.3 pg (27.00-32.0)
[2023-08-28 15:38] LABS: ALBUMIN 1.2 gm/dL (3.4-5.0); BILIRUBIN TOTAL 0.26 mg/dL (0.3-1.2); GLOBULINA 2.7 G/DL (2.4-3.5); PHOSPHOROUS 2.4 mg/dL (2.5-4.9); POTASSIUM 3.05 mEq/L (3.5-5.1); TOTAL PROTEIN 3.9 gm/dL (6.4-8.2)
[2023-08-28 16:02] LABS: GFR 351.16
[2023-08-28 16:03] LABS: C-REACTIVE PROTEIN 10.6 MG/DL (0.00-0.29); CALCIUM 5.9 mg/dL (8.5-10.1); MAGNESIUM 1.1 mg/dL (1.8-2.4)
[2023-08-28 16:04] LABS: CREATININE SERUM 0.2 mg/dL (0.55-1.02)
[2023-08-28] MEDS ORDERED: MAGNESIUM SULFATE IN WATER 4 GM/100 ML PIGGYBACK IV ONE (16:15)
[2023-08-28] MEDS ORDERED: CALCIUM GLUCONATE 100 MG/ML VIAL IV ONE (16:15)
[2023-08-29] MEDS ORDERED: DESMOPRESSIN ACETATE 4 MCG/ML AMPUL IV SCH (12:00)
[2023-08-29] MEDS ORDERED: POTASSIUM BICARBONATE/CIT AC 25 MEQ TABLET.EFF PO SCH (13:00)
[2023-08-31] MEDS ORDERED: MEROPENEM 1,000 MG VIAL IV SCH (20:00)
[2023-09-01] MEDS ORDERED: LOPERAMIDE HCL 4 MG/30 ML LIQUID PO SCH (17:00)
[2023-09-01] MEDS ORDERED: LOPERAMIDE HCL 2 MG CAPSULE PO SCH (17:00)
[2023-09-02 02:24] LABS: HEMATOCRIT 32.1 % (36.0-45.00); MEAN CELL VOLUME 83.8 fL (80.00-100.00); MEAN CORPUSCULAR HEMOGLOBIN 28.1 pg (27.00-32.0); MEAN CORPUSCULAR HGB CONC 33.6 g/dl (32.0-36.0); PLATELET COUNT 360 K/uL (150-450); RED BLOOD COUNT 3.84 M/uL (4.00-6.00); RED CELL DISTRIBUTION WIDTH 16.1 % (11.5-14.5)
[2023-09-02 02:25] LABS: HEMOGLOBIN 10.8 g/dL (12.0-15.00)
[2023-09-02 02:42] LABS: ALBUMIN 1.9 gm/dL (3.4-5.0); CALCIUM 8.3 mg/dL (8.5-10.1); GFR 284.52; MAGNESIUM 1.6 mg/dL (1.8-2.4); POTASSIUM 4.18 mEq/L (3.5-5.1)
[2023-09-02 02:43] LABS: CREATININE SERUM 0.24 mg/dL (0.55-1.02)
[2023-09-02] MEDS ORDERED: 0.9 % SODIUM CHLORIDE 1,000 ML IV SCH (07:45)
[2023-09-02] MEDS ORDERED: ACETYLCYSTEINE 200 MG/ML 30ML VIAL IH SCH (12:00)
[2023-09-02] MEDS ORDERED: LEVALBUTEROL HCL 0.63 MG/3 ML SOLUTION IH SCH (13:00)
[2023-09-02 15:51] LABS: ABG PH 7.453 (7.35-7.45); ABG PO2 71.4 mmHg (80-100); BASE EXCESS 1.2 mmol/l; BICARBONATE 24.5 mmol/l (23-25); SaO2 95.2 %; Tco2 25.6 mmol/l
[2023-09-02 15:52] LABS: allen test SATISFACTORY; o2 21 %; puncture site RADIAL LEFT
[2023-09-03 06:53] LABS: ALBUMIN 1.8 gm/dL (3.4-5.0); CALCIUM 8.3 mg/dL (8.5-10.1); GFR 331.91; PHOSPHOROUS 2.8 mg/dL (2.5-4.9); POTASSIUM 4.01 mEq/L (3.5-5.1)
[2023-09-03 06:58] LABS: CREATININE SERUM 0.21 mg/dL (0.55-1.02)
[2023-09-03] MEDS ORDERED: GENTAMICIN SULFATE 40 MG/ML VIAL IV ONE (07:15)
[2023-09-03] MEDS ORDERED: LINEZOLID 600 MG TABLET PO SCH (09:00)
[2023-09-03] MEDS ORDERED: GENTAMICIN SULFATE 40 MG/ML VIAL IV SCH (13:00)
[2023-09-04 07:42] LABS: HEMATOCRIT 30.5 % (36.0-45.00); HEMOGLOBIN 10.1 g/dL (12.0-15.00); MEAN CELL VOLUME 87.4 fL (80.00-100.00); MEAN CORPUSCULAR HEMOGLOBIN 29.1 pg (27.00-32.0); MEAN CORPUSCULAR HGB CONC 33.2 g/dl (32.0-36.0); PLATELET COUNT 329 K/uL (150-450); RED BLOOD COUNT 3.48 M/uL (4.00-6.00); RED CELL DISTRIBUTION WIDTH 16.1 % (11.5-14.5)
[2023-09-04 07:44] LABS: ALBUMIN 1.8 gm/dL (3.4-5.0); BILIRUBIN TOTAL 0.21 mg/dL (0.3-1.2); CALCIUM 8.6 mg/dL (8.5-10.1); GFR 314.58; GLOBULINA 3.8 G/DL (2.4-3.5); MAGNESIUM 1.7 mg/dL (1.8-2.4); PHOSPHOROUS 2.6 mg/dL (2.5-4.9); POTASSIUM 4.25 mEq/L (3.5-5.1); TOTAL PROTEIN 5.6 gm/dL (6.4-8.2)
[2023-09-04 07:55] LABS: CREATININE SERUM 0.22 mg/dL (0.55-1.02)
[2023-09-05 10:23] LABS: CALCIUM 8.9 mg/dL (8.5-10.1); GENTAMYCIN PEAK 3.2 ug/ml (4.0-8.0); GFR 314.58; POTASSIUM 4.58 mEq/L (3.5-5.1)
[2023-09-05 10:29] LABS: CREATININE SERUM 0.22 mg/dL (0.55-1.02)
[2023-09-07 19:23] LABS: HEMATOCRIT 32.1 % (36.0-45.00); HEMOGLOBIN 10.4 g/dL (12.0-15.00); MEAN CORPUSCULAR HEMOGLOBIN 28.2 pg (27.00-32.0); MEAN CORPUSCULAR HGB CONC 32.4 g/dl (32.0-36.0); PLATELET COUNT 247 K/uL (150-450); RED BLOOD COUNT 3.69 M/uL (4.00-6.00); RED CELL DISTRIBUTION WIDTH 15.9 % (11.5-14.5)
[2023-09-07 19:54] LABS: ALBUMIN 1.8 gm/dL (3.4-5.0); BILIRUBIN TOTAL 0.24 mg/dL (0.3-1.2); CALCIUM 8.8 mg/dL (8.5-10.1); CREATININE SERUM 0.18 mg/dL (0.55-1.02); GFR 396.56; GLOBULINA 3.8 G/DL (2.4-3.5); POTASSIUM 4.42 mEq/L (3.5-5.1); TOTAL PROTEIN 5.6 gm/dL (6.4-8.2)
[2023-09-08] MEDS ORDERED: MEROPENEM 1,000 MG VIAL IV SCH (14:00)
[2023-09-08] MEDS ORDERED: DOXYCYCLINE HYCLATE 100MG IV SCH (21:00)
[2023-09-09] MEDS ORDERED: AMINO ACIDS/PROTEIN HYDROLYS 30 ML BLIST.PACK PO SCH (18:44)
== END 2023-09-09 18:47 | disposition designated cancer center or children's hospital (05) | DRG 40 ==
LOC: ER 09:44 → ICU-2 18:17 → MEDJ 18:17 → ICU 18:17 → MEDJ 07-17 17:12
PROVIDERS: General Practice; Internal Medicine; Internal Medicine Infectious Disease; Internal Medicine Nephrology; ADMIT Internal Medicine; ATTEND Internal Medicine
PROC: B020ZZZ Computerized Tomography (CT Scan) of Brain (ICD-10-PCS; principal; 2023-07-07)
PROC: BB24ZZZ Computerized Tomography (CT Scan) of Bilateral Lungs (ICD-10-PCS; 2023-07-07)
PROC: B246ZZZ Ultrasonography of Right and Left Heart (ICD-10-PCS; 2023-07-07)
PROC: 0BH18EZ Insertion of Endotracheal Airway into Trachea, Via Natural or Artificial Opening Endoscopic (ICD-10-PCS; 2023-07-07)
PROC: 5A1955Z Respiratory Ventilation, Greater than 96 Consecutive Hours (ICD-10-PCS; 2023-07-07)
PROC: 0DH67UZ Insertion of Feeding Device into Stomach, Via Natural or Artificial Opening (ICD-10-PCS; 2023-07-07)
PROC: 3E0G76Z Introduction of Nutritional Substance into Upper GI, Via Natural or Artificial Opening (ICD-10-PCS; 2023-07-07)
PROC: 02HV33Z Insertion of Infusion Device into Superior Vena Cava, Percutaneous Approach (ICD-10-PCS; 2023-07-08)
PROC: 5A0935A Assistance with Respiratory Ventilation, Less than 24 Consecutive Hours, High Flow/Velocity Cannula (ICD-10-PCS; 2023-07-09)
PROC: 0BP1XDZ Removal of Intraluminal Device from Trachea, External Approach (ICD-10-PCS; 2023-07-14)
PROC: 3E0F7GC Introduction of Other Therapeutic Substance into Respiratory Tract, Via Natural or Artificial Opening (ICD-10-PCS; 2023-07-15)
PROC: 4A12X4Z Monitoring of Cardiac Electrical Activity, External Approach (ICD-10-PCS; 2023-07-18)
PROC: B54MZZZ Ultrasonography of Right Upper Extremity Veins (ICD-10-PCS; 2023-08-18)
PROC: BB24ZZZ Computerized Tomography (CT Scan) of Bilateral Lungs (ICD-10-PCS; 2023-08-26)
PROC: 0JB70ZZ Excision of Back Subcutaneous Tissue and Fascia, Open Approach (ICD-10-PCS; 2023-08-28)
PROC: 30233N1 Transfusion of Nonautologous Red Blood Cells into Peripheral Vein, Percutaneous Approach (ICD-10-PCS; 2023-08-31)
DX: G93.1 Anoxic brain damage, not elsewhere classified (principal); A41.9 Sepsis, unspecified organism; R65.21 Severe sepsis with septic shock; I21.4 Non-ST elevation (NSTEMI) myocardial infarction; I46.9 Cardiac arrest, cause unspecified; J80 Acute respiratory distress syndrome; U07.1 COVID-19; J12.82 Pneumonia due to coronavirus disease 2019; R57.0 Cardiogenic shock; N17.9 Acute kidney failure, unspecified; I13.0 Hypertensive heart and chronic kidney disease with heart failure and stage 1 through stage 4 chronic kidney disease, or unspecified chronic kidney disease; J90 Pleural effusion, not elsewhere classified; I67.82 Cerebral ischemia; E87.0 Hyperosmolality and hypernatremia; J98.11 Atelectasis; I50.9 Heart failure, unspecified; Z85.42 Personal history of malignant neoplasm of other parts of uterus; N18.9 Chronic kidney disease, unspecified; Z66 Do not resuscitate; I11.0 Hypertensive heart disease with heart failure; B96.1 Klebsiella pneumoniae [K. pneumoniae] as the cause of diseases classified elsewhere; B96.5 Pseudomonas (aeruginosa) (mallei) (pseudomallei) as the cause of diseases classified elsewhere; R56.9 Unspecified convulsions; J45.909 Unspecified asthma, uncomplicated; B96.89 Other specified bacterial agents as the cause of diseases classified elsewhere; D64.9 Anemia, unspecified; L89.152 Pressure ulcer of sacral region, stage 2; L89.322 Pressure ulcer of left buttock, stage 2; Z88.6 Allergy status to analgesic agent; D69.6 Thrombocytopenia, unspecified; R40.2433 Glasgow coma scale score 3-8, at hospital admission